=== PATIENT | female | born 1965 | race African-American/Black ===

== ENCOUNTER 2021-07-17 09:26 | Outpatient (CLI) | payer BC, SELFPAY ==
--- NOTE | ~2021-07-17 | MMUS_ITS ---
EXAMINATION: US breast biopsy RT w image, MM post biopsy invasive RT DATE: 07/17/2021 10:48 (accession [id number]), 07/17/2021 11:09 (accession [id number]) INDICATION: Indeterminate mass at the 12:00 location of the right breast Ultrasound-guided core biops y is requested to evaluate for malignancy. TECHNIQUE AND FINDINGS: The risks and potential benefits of the procedure were discussed with the patient including bleeding, infection, and nondiagnostic specimen. A time out was performed. The skin of the right breast was pr epared and draped in usual sterile fashion. 1% lidocaine was used for superficial anesthesia. 1% lido bam with epinephrine was used for deep anesthesia. A vacuum-assisted biopsy gun needle was advanced through to the outer edge of the region of interest from a lateral approach utilizing sonographic guidance. A total of three tissue core samples were obt ained through the lesion. A tissue marker clip was then placed at the biopsy site. Hemostasis was ach ieved. A sterile bandage was applied. The patient tolerated procedure well and there was no evidence of immediate complication. The patient was given verbal instructions to return to the Emergency Department in the event of severe breast pa in or rapid breast enlargement. A two view right breast mammogram was obtained to document tissue mar ker clip placement. The marker position appears to be approximately 2 cm superolateral to the biopsy location. IMPRESSION: 1. Successful ultrasound-guided vacuum-assisted biopsy of right breast mass with tissue marker placem ent. Reviewed, dictated and finalized at location A. PULLER IMPRESSION: 1. Successful ultrasound-guided vacuum-assisted biopsy of right breast mass wit h tissue marker placement.
== END 2021-07-17 09:27 | disposition home or self-care (01) ==
LOC: ANHIMG 09:31
PROVIDERS: PCP Internal Medicine; Visit Provider Internal Medicine
DX: N63.15 Unspecified lump in the right breast, overlapping quadrants (principal)
CPT/HCPCS: 19083; 88305; A4648